=== PATIENT | female | born 2000 | race Caucasian/White ===

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

== ENCOUNTER 2022-05-06 22:40 | Emergency (ER) | payer BC, OTHER ==
[2022-05-06 23:37] LABS: ESTIMATED GFR 131 mL/min (>60)
== END 2022-05-07 00:20 | disposition home or self-care (01) ==
LOC: FB.ED 22:40
DX: M54.50 Low back pain, unspecified (principal); E66.9 Obesity, unspecified; Z68.43 Body mass index [BMI] 50.0-59.9, adult; Z79.899 Other long term (current) drug therapy
CPT/HCPCS: 36415; 80048; 81001; 85025; 86140; 99283